=== PATIENT | male | born 1945 | race Caucasian/White ===

== ENCOUNTER 2016-12-21 16:10 | Emergency (ER) | payer MEDICARE, MEDICAID ==
[2016-12-21 17:14] LABS: ABSOLUTE NEUTROPHIL COUNT 11.2 K/mm3 (1.8-7.7); BASO % 0.2 % (0.2-1.0); EOS % 0.1 % (0.9-2.9); HEMATOCRIT 31.7 % (32.0-52.0); HEMOGLOBIN 10.1 gm/l (14.0-18.0); IMM NEUT # 0.1 K/mm3 (0-0.2); IMM NEUT% 0.8 % (0-1); LYMPH % 7.6 % (15-45); MEAN CELL VOLUME 101.6 fl (80.0-94.0); MEAN CORPUSCULAR HEMOGLOBIN 32.4 pg (27.0-31.0); MEAN CORPUSCULAR HGB CONC 31.9 g/dl (33.0-37.0); MEAN PLATELET VOLUME 9.8 fl (7.4-10.4); MONO # 1.1 (0.0-0.8); MONO % 8.2 % (4-12); NEUT % 83.1 % (43-75); PLATELET COUNT 351 K/mm3 (130-400); RED CELL DISTRIBUTION WIDTH 13.3 % (11.5-14.5)
[2016-12-21 17:15] LABS: URINE BILIRUBIN NEGATIVE (NEGATIVE); URINE BLOOD 1+ (NEGATIVE); URINE GLUCOSE (UA) NEGATIVE (NEGATIVE); URINE LEUKOCYTE ESTERASE 2+ (NEGATIVE); URINE NITRITE POSITIVE (NEGATIVE); URINE PROTEIN 1+ (NEGATIVE); URINE UROBILINOGEN NORMAL (0-1 mg/dl)
[2016-12-21 17:18] LABS: URINE APPEARANCE CLEAR; URINE COLOR YELLOW
[2016-12-21] MEDS ORDERED: ACETAMINOPHEN 325 MG TABLET ONE (17:30)
[2016-12-21] MEDS ORDERED: ACETAMINOPHEN 500 MG TABLET ONE (17:31)
[2016-12-21 17:38] LABS: URINE BACTERIA 3+; URINE EPITHELIAL CELLS 0 /hpf; URINE RBC 0 /hpf
[2016-12-21 17:39] LABS: ALB/GLOB RATIO 0.9 (>1.0); ALBUMIN 3.3 gm/dL (3.5-5.7)
--- NOTE | 2016-12-21 17:43 | RAD ---
12/21/2016 5:38 PM CHEST - 2 VIEWS History: Fever and weakness. Comparison: 10/29/2016 Findings: Two views of the chest are obtained. Technologist notation states patient had difficulty cooperating for the examination and best images are provided for review. The lungs are clear with out effusion or pneumothorax. The cardiomediastinal silhouette is unremarkable.. The osseous structures are intact.. Low volumes limit the study. IMPRESSION: Low volumes without discrete pathology..
[2016-12-21] MEDS ORDERED: CEFTRIAXONE SODIUM 1 G VIAL ONE (18:04)
[2016-12-21] MEDS ORDERED: SODIUM CHLORIDE 0.9% 100 ML IV ONE (18:04)
== END 2016-12-21 18:41 | disposition home or self-care (01) ==
LOC: ED 16:10
DX: N39.0 Urinary tract infection, site not specified (principal); B96.1 Klebsiella pneumoniae [K. pneumoniae] as the cause of diseases classified elsewhere; Z16.11 Resistance to penicillins
CPT/HCPCS: 83605; 82150; 85025; 87040 ×2; 87086; 80053; 87186 ×2; 84484; 81001; 87077 ×2; 71020; 87804; 99284 ×2; 96365; 51798; 51701; J0696; A9270 ×2; J7050